=== PATIENT | female | born 1990 | race Caucasian/White ===

== ENCOUNTER 2016-08-19 10:47 | Outpatient (CLI) | payer OTHER ==
--- NOTE | 2016-08-19 13:55 | DIAGNOSTIC IMAGING REPORT ---
PROCEDURE: US COMPLETE PELVIC W/TRANSVAG INDICATION: 50. Assess for PCOS. TECHNIQUE: Transabdominal and endovaginal ruth scale and color Doppler sonographic images of the female pelvis were obtained. COMPARISON: None. FINDINGS: TRANSABDOMINAL SCANS: Anteverted uterus. Normal kidneys. TRANSVAGINAL SCANS: The uterus measures 7.6 x 4.2 x 2.5 cm. Myometrium is unremarkable. Normal endometrium measures 4.8 mm. Right ovary measures 3.1 x 1.9 x 2.8 cm and left ovary 3.2 x 2.3 x 2.4 cm. There are small peripheral follicles bilaterally with slightly increased echogenicity of the ovarian stroma. No free fluid the cul-de-sac. IMPRESSION: 1. Multiple small peripheral ovarian follicles bilaterally with slightly increased ovarian stroma echogenicity. Polycystic ovarian syndrome is a consideration. Correlate clinically.
== END 2016-08-19 23:00 ==
LOC: US SRH 10:47
DX: N83.02 Follicular cyst of left ovary (principal); N83.01 Follicular cyst of right ovary; Z86.59 Personal history of other mental and behavioral disorders; J30.2 Other seasonal allergic rhinitis; L68.0 Hirsutism; E03.9 Hypothyroidism, unspecified